=== PATIENT | female | born 1995 | race Caucasian/White ===

== ENCOUNTER 2018-04-11 08:24 | Day surgery (SDC) | payer BC, MEDICAID ==
[2018-04-02 09:39] LABS: HEMATOCRIT 40.5 % (36.0-47.0); HEMOGLOBIN 14.2 g/dL (12.0-15.5); MEAN CORPUSCULAR HEMOGLOBIN 31.4 pg (27.0-33.4); MEAN CORPUSCULAR HGB CONC 34.9 g/dL (32.0-36.0); MEAN CORPUSCULAR VOLUME 90 fl (80-97); PLATELET COUNT 318 10^3/uL (150-450); RED BLOOD COUNT 4.51 10^6/uL (3.72-5.28); RED CELL DISTRIBUTION WIDTH 12.6 % (11.5-14.0); WHITE BLOOD COUNT 11.6 10^3/uL (4.0-10.5)
[2018-04-02 10:38] LABS: APPEARANCE,URINE CLEAR; BILIRUBIN,URINE NEGATIVE (NEGATIVE); COLOR,URINE COLORLESS; GLUCOSE, URINE NEGATIVE (NEGATIVE); KETONES,URINE NEGATIVE (NEGATIVE); LEUKOCYTE ESTERASE,URINE NEGATIVE (NEGATIVE); NITRITE,URINE NEGATIVE (NEGATIVE); PROTEIN,URINE NEGATIVE (NEGATIVE); URINE SPECIFIC GRAVITY 1.008; UROBILINOGEN,URINE NEGATIVE mg/dL (<2.0)
[~2018-04-11 08:24] MED LIST: LACTATED RINGERS 1000 ML IV PRN; LIDOCAINE 0.5% INJ-PF (5 MG/ML) 50 ML SDV SUBCUT PRN
[2018-04-11] MEDS ORDERED: BUPIVACAINE HCL 0.25 % INJ/PF (2.5 MG/1 ML) 30 ML VIAL ONE (10:16)
[2018-04-11] MEDS ORDERED: FENTANYL CITRATE INJ/PF 100 MCG/2 ML AMPUL ONE ×3 (10:16→11:21)
[2018-04-11] MEDS ORDERED: MIDAZOLAM 2 MG/2 ML INJ ONE (10:16)
[2018-04-11] MEDS ORDERED: PROPOFOL INJ 200 MG/20 ML VIAL IV ONE (10:16)
[2018-04-11] MEDS ORDERED: FENTANYL CITRATE INJ/PF 100 MCG/2 ML AMPUL IV PRN ×3 (10:45)
[2018-04-11] MEDS ORDERED: DIPHENHYDRAMINE HCL 50 MG/ML VIAL IV PRN (10:45)
[2018-04-11] MEDS ORDERED: MEPERIDINE HCL/PF INJ 25 MG/1 ML DISP.SYRIN IV PRN (10:45)
[2018-04-11] MEDS ORDERED: PROMETHAZINE HCL INJ 25 MG/1 ML VIAL IV PRN (10:45)
[2018-04-11] MEDS ORDERED: ACETAMINOPHEN 1,000 MG/100 ML RTUPB IV ONE (11:21)
[2018-04-11] MEDS ORDERED: ONDANSETRON HCL INJ/PF 4 MG/2 ML SDV ONE ×2 (11:27→13:37)
[2018-04-11] MEDS ORDERED: SCOPOLAMINE HYDROBROMIDE 1.5 MG PATCH.TD72 ONE (11:27)
[2018-04-11] MEDS ORDERED: OXYCODONE-ACETAMINOPHEN 5-325 MG TABLET PO PRN (11:51)
[2018-04-11] MEDS ORDERED: ONDANSETRON HCL 8 MG TABLET PO PRN (11:52)
--- NOTE | 2018-04-11 12:00 | OPERATIVE REPORT E ---
Operative Report NAME: UZIEL SPENCER : 1995 AGE: 22Y DATE OF SURGERY: 04/11/2018 ROOM: PREOPERATIVE DIAGNOSIS: Multiparity with desire of sterilization. POSTOPERATIVE DIAGNOSIS: Multiparity with desire of sterilization. OPERATION: Bilateral tubal occlusion using [place] clips. SURGEON: Paula KEARNS M.D. ANESTHESIA: General. ESTIMATED BLOOD LOSS: Less than 5 mL. TISSUE REMOVED OR ALTERED: No tissue was removed. PROCEDURE: The patient was placed in the dorsal lithotomy position, prepped and draped in usual sterile fashion. A speculum was placed. Cervix was visualized and grasped with a single-tooth tenaculum. Hulka tenaculum was placed. Single-tooth tenaculum was removed. Speculum was removed. Bladder was drained with the catheter. A subumbilical semilunar incision was made. Trocar was introduced with insufflation of the abdomen. Tubes and ovaries appeared to be normal. The uterus was normal. The omentum appeared to be adhered to where her old scar slightly left to midline, it may be a small hernia in that incision. The second puncture made above the symphysis in the old scar. Clips were applied on the right. Good purchase of tissue being noted and tubes identified to the fimbria prior to and after occluding and repeated on the left, again with good purchase being noted. Tubes has been identified at the fimbria after reocclusion. The laparoscope was removed, the abdomen deflated, trocar sleeve removed. The incision closed with 0 Vicryl for the fascia and 4-0 Vicryl subcutaneous for the skin. The Hulka tenaculum was removed. Hemostasis was noted. The patient tolerated the procedure well and taken to the recovery room in good condition. DICTATING PHYSICIAN: Paula KEARNS M.D. [id number] PHY#: [id number] ID: [id number] JOB#: [id number] ACCT: [id number] cc:Paula KEARNS M.D. >
[2018-04-11] MEDS ORDERED: OXYCODONE-ACETAMINOPHEN 5-325 MG TABLET ONE (12:03)
[2018-04-11] MEDS ORDERED: SUCCINYLCHOLINE CHLORIDE INJ 200 MG/10 ML VIAL ONE (13:37)
[2018-04-11] MEDS ORDERED: DEXAMETHASONE SOD PHOSPHATE INJ 4 MG/1 ML VIAL ONE (13:37)
[2018-04-11] MEDS ORDERED: LIDOCAINE 2% INJ-PF (20 MG/ML) 2 ML AMPUL ONE (13:37)
[2018-04-11] MEDS ORDERED: KETOROLAC TROMETHAMINE 60 MG/2 ML SDV ONE (13:37)
[2018-04-11 13:39] VITALS: BP 110/68
[2018-04-11] MEDS ORDERED: IBUPROFEN 800 MG TABLET PO SCH (14:00)
== END 2018-04-11 13:44 | disposition home or self-care (01) ==
LOC: OROUT 08:24 → EEVIPCON 08:24 → OROUT 13:44
PROVIDERS: ATTEND Obstetrics & Gynecology Gynecology
DX: Z30.2 Encounter for sterilization (principal); J45.909 Unspecified asthma, uncomplicated; Z87.891 Personal history of nicotine dependence; Z01.818 Encounter for other preprocedural examination
CPT/HCPCS: 58671; 36415; 85027; 81005; 81025; J2250; J1100; J1885; J3010; J0330; J2405; J2704; J0131; J3490; 851

== ENCOUNTER 2018-06-14 13:41 | Emergency (ER) | payer BC ==
[2018-06-14 13:52] VITALS: BP 126/71
--- NOTE | 2018-06-14 14:10 | ER Document Report ---
HPI - HPI Patient complains to provider of: left ear bleeding Pain Level: 4 Context: pt is a 22yo healthy female c/o bleeding from her left ear. pt reports she laid down for a nap feeling perfectly fine. woke up from her nap with a headache and bleeding from her left ear. pt denies any fever, URI symptoms. Associated Symptoms: Headache Exacerbated by: Denies Relieved by: Denies Similar symptoms previously: No Recently seen / treated by doctor: No - REPRODUCTIVE LMP: tubal ligation Reproductive: REPORTS: : Past Medical History - General Information source: Patient - Social History Smoking Status: Current Every Day Smoker Frequency of alcohol use: None Drug Abuse: None Family History: Reviewed & Not Pertinent - Past Medical History Cardiac Medical History: Denies: Hx Coronary Artery Disease, Hx Heart Attack, Hx Hypertension Pulmonary Medical History: Denies: Hx Asthma, Hx Bronchitis, Hx COPD, Hx Pneumonia Neurological Medical History: Denies: Hx Cerebrovascular Accident, Hx Seizures Musculoskeletal Medical History: Denies Hx Arthritis Past Surgical History: Reports: Hx Section, Hx Tonsillectomy - Immunizations Hx Diphtheria, Pertussis, Tetanus Vaccination: Yes Vertical Provider Document - CONSTITUTIONAL Agree With Documented VS: Yes Exam Limitations: No Limitations - INFECTION CONTROL TRAVEL OUTSIDE OF THE [place] IN LAST 30 DAYS: No - HEENT HEENT: Atraumatic Notes: Positive left preauricular and postauricular tenderness. Mastoid nontender, no erythema or crepitus. Small site of bleeding noted to left external acoustic meatus. Left TM intact no perforation - NECK Neck: Normal Inspection, Supple - RESPIRATORY Respiratory: Breath Sounds Normal - CARDIOVASCULAR Cardiovascular: Regular Rate, Regular Rhythm Course - Re-evaluation Re-evalutation: 06/14/18 14:10 Patient has an active site of bleeding to her inner ear canal. The drum is intact. Low suspicion for infectious cause. Mastoid is nontender. Patient denies any trauma, so cannot explain the cause of the bleeding. - Vital Signs Vital signs: Temp Pulse Resp BP Pulse Ox 98.2 F 74 20 126/71 H 100 06/14/18 13:49 06/14/18 13:49 06/14/18 13:49 06/14/18 13:49 06/14/18 13:49 Discharge - Discharge Clinical Impression: Bleeding from left ear Condition: Stable Disposition: HOME, SELF-CARE Instructions: Use of Ear Drops ([facility]), Oral Narcotic Medication ([facility]) Additional Instructions: I cannot explain the cause of your ear bleeding The eardrum is intact and there is no sign of infection or perforation Use the ear drops as prescribed pain medication as needed Follow-up with your primary care if symptoms persist Prescriptions: Hydrocodone/Acetaminophen [[place] 5-325 mg Tablet] 1 tab PO Q4H PRN #6 tablet PRN Reason: Neomy Sulf/Polymyx B Sulf/Hc [Cortisporin Otic Susp] 4 drop LFT_EAR Q4 #1 bottle Referrals: GENA QUIJANO MD [Primary Care Provider] - Follow up as needed
[2018-06-14] MEDS ORDERED: HYDROCODONE/ACETAMINOPHEN 5-325 MG TABLET PO ONE (14:14)
== END 2018-06-14 14:24 | disposition home or self-care (01) ==
LOC: ER 13:41
DX: H92.22 Otorrhagia, left ear (principal); F17.200 Nicotine dependence, unspecified, uncomplicated
CPT/HCPCS: 99282